=== PATIENT | male | born 1965 | race Caucasian/White ===

== ENCOUNTER 2023-08-20 10:37 | Day surgery (SDC) | payer OTHER ==
[2023-08-20] MEDS ORDERED: Ringers Lactate 1,000 ML IV ONE (10:56)
[2023-08-20] MEDS ORDERED: CEFAZOLIN SODIUM 1 GM/VIAL ONE (10:56)
--- NOTE | 2023-08-20 11:34 | RAD REPORT ---
EXAM DESCRIPTION: RAD - Chest Pa And Lat (2 Views) - 08/20/2023 11:14 am CLINICAL HISTORY: pre procedural screening Chest pain. COMPARISON: CHEST PA AND LAT 2 VIEW dated 08/26/2015 FINDINGS: The lungs are clear. The heart is normal in size. No displaced fractures. IMPRESSION: No acute or concerning finding suspected.
[2023-08-20 11:36] LABS: Absolute Basophils 0.1 K/uL (0-0.5); Absolute Eosinophils 0.1 K/uL (0-0.5); Absolute Lymphocytes (CBC) 1.7 K/uL (0.7-4.9); Absolute Monocytes 0.3 K/uL (0.1-1.3); Basophils % 1.3 % (0-1.3); Eosinophils % 2.7 % (0-4.4); Hematocrit 47.3 % (39.6-49.0); Hemoglobin 16.4 g/dL (13.6-17.9); Lymphocytes % 32.9 % (15.3-44.8); MCH 31.9 pg (27.0-35.0); MCHC 34.8 g/dL (32.0-36.0); MCV 91.6 fL (80-100); MPV 8.3 fL (7.6-11.3); Monocytes % 6.1 % (3.3-12.3); Platelets 134 thou/uL (152-406); RBC Red Blood Cell Count 5.16 M/uL (4.33-5.43)
[2023-08-20 11:49] LABS: Anion Gap 8.1 mEq/L (5.0-15.0); Potassium 4.1 mEq/L (3.5-5.1)
[2023-08-20] MEDS ORDERED: MIDAZOLAM HCL 2 MG/2 ML INJ ONE (12:51)
[2023-08-20] MEDS ORDERED: FENTANYL CITR 100 MCG/2 ML ONE (12:51)
[2023-08-20] MEDS ORDERED: propofoL 200 MG/20 ML VIAL IV ONE (12:51)
[2023-08-20] MEDS ORDERED: LIDOCAINE 1% MPF 5 ML VIAL ONE (12:51)
[2023-08-20] MEDS ORDERED: ONDANSETRON 4 MG/2 ML VIAL ONE (12:51)
[2023-08-20] MEDS ORDERED: KETOROLAC 30 MG/ML INJ ONE (12:51)
[2023-08-20] MEDS: HYDROCODONE/APAP 5/325 MG TAB ONE (15:08)
[2023-08-20 16:07] VITALS: BP 123/78; TEMP 96.7; O2SAT 97
--- NOTE | 2023-08-27 17:54 | EKG ---
Test Date: 2023-08-20 Test Time: 12:02:29 Electronic Sales And Service Technician: LIZY MEASUREMENT RESULTS: Intervals: Rate: 73 ND: 158 QRSD: 88 QT: 382 QTc: 420 [place]: P: 49 ND: 158 QRS: -17 T: 29 INTERPRETIVE STATEMENTS: Normal sinus rhythm Minimal voltage criteria for LVH, may be normal variant Borderline ECG No previous ECG available for comparison Electronically Signed On 08-27-23 17:33:18 CDT by Patrick Zuleta
--- NOTE | 2023-09-15 13:02 | P.BOP ---
Preoperative diagnosis: infected back subQ mass Postoperative diagnosis: same Primary procedure: Excisional biopsy of infected back subQ mass Estimated blood loss: <10cc Specimen: mass Findings: mass Anesthesia: General Complications: None Transferred to: Recovery Room Condition: Good
--- NOTE | 2023-09-15 14:00 | DS ---
Date of Discharge: 08/20/2023 Diagnosis: Infected back subcutaneous mass. Procedure: Excisional biopsy of infected back subcutaneous mass. Condition: Stable. Disposition: Home. Activity: As tolerated. No heavy lifting. Plan: Follow up in my office in 1 week. Call for an appointment at [phone]. Keep area dry for 48 hours, then may remove outer dressings and shower and apply triple antibiotic ointment and a Band-Aid . MIKE/ZAN Voice ID: [id number] Report ID: [id number]
--- NOTE | 2023-09-15 14:00 | OP ---
Surgeon: Ronn Garay MD Preoperative Diagnosis: Infected back subcutaneous mass. Postoperative Diagnosis: Infected back subcutaneous mass. Procedure: Excisional biopsy of infected back subcutaneous mass. Estimated Blood Loss: Less than 10 cc. Specimen: Mass. Anesthesia: General plus local. Complications: None. Indication: This is a case of a 58-year-old patient who came to us with infected back mass. The mily efits, alternatives, and risks of excision fully explained, which include, but not limited to, infect ion, bleeding, damage to adjacent structures, anesthesia complication, recurrence, NC, and even . He also understands this may not relieve any symptoms. He might need more than one surgical inter vention. He may require wound care. He understood and signed a consent. The area of concern was ma rked by me and the patient in the holding room. Description Of Procedure: Patient was brought to the operating room, placed in supine position. Ane sthesia was done without complication. The patient was placed in lateral decubitus position with pro per protection. The back area was prepped and draped in the usual sterile fashion. Local anesthesia was applied followed by a wedge incision of the skin all the way down to deep subcutaneous tissue. The mass was completely excised and then the area was closed in layers with 3-0 chromic and then senior analytic consultant meaghan more superficial. The sponge counts and instrument counts were correct. Hemostasis was obtained before closure. Area was covered with sterile dressings. Patient sent to Recovery in stable condition. MIKE/ZAN Voice ID: [id number] Report ID: [id number]
== END 2023-08-20 15:28 | disposition home or self-care (01) ==
LOC: OR 10:37
PROVIDERS: ATTEND Surgery
PROC: 0JB70ZZ Excision of Back Subcutaneous Tissue and Fascia, Open Approach (ICD-10-PCS; principal; 2023-08-20 12:30)
DX: L72.0 Epidermal cyst (principal); L08.9 Local infection of the skin and subcutaneous tissue, unspecified
CPT/HCPCS: 11403; 93005; 87070; 85025; 80048; 36415; 87205; 88304; 87075; 71046; J2704; J2001; J2250; J3010; J2405; J7120; J0690